=== PATIENT | male | born 1985 | race Caucasian/White ===

== ENCOUNTER 2017-11-23 12:05 | Emergency (ER) | payer OTHER, BC ==
[~2017-11-23] VITALS: Ht 167.6 cm; Wt 113.6 kg
[2017-11-23 13:20] VITALS: BP 158/96; PULSE 71; TEMP 97.8
[2017-11-23 13:24] LABS: TRICYCLIC ANTIDEPRESS URINE NEGATIVE
== END 2017-11-23 13:18 | disposition home or self-care (01) ==
LOC: COL.ER 12:05
PROVIDERS: Emergency Medicine
DX: S90.112A Contusion of left great toe without damage to nail, initial encounter (principal); W20.8XXA Other cause of strike by thrown, projected or falling object, initial encounter; Y92.89 Other specified places as the place of occurrence of the external cause; Y99.0 Civilian activity done for income or pay

== ENCOUNTER 2021-05-11 08:15 | Outpatient (RCR) | payer BC | END 2021-05-31 14:29 | LOC: PT.GENESIS 08:15 | DX: M51.16 Intervertebral disc disorders with radiculopathy, lumbar region (principal) ==